=== PATIENT | female | born 1965 | race Caucasian/White ===

== ENCOUNTER 2020-05-02 11:45 | Outpatient (NON) | payer BC, SELFPAY ==
[2020-05-03 00:19] LABS: SARS-CoV-2 RNA PCR Positive
== END 2020-05-02 11:46 ==
PROVIDERS: Visit Provider Internal Medicine Infectious Disease
DX: U07.1 COVID-19 (principal)
CPT/HCPCS: 87635; C9803; U0003

== ENCOUNTER 2021-05-27 12:46 | Outpatient (CLI) | payer BC, SELFPAY ==
--- NOTE | 2021-05-30 13:58 | WPDHOLTEREM ---
Holter/Event Monitor Holter/Event Monitor Date of procedure: 05/30/21 Holter/Event Procedure: 24 Hr Holter Monitor Diagnosis: The taken Indications: Evaluation of palpitation Image/Tracing Quality: Favorable Finding: The basic rhythm is sinus with normal [place] QRS and QT interval. The heart rate varies from a minimum of 62 to a maximum of 128. The average heart rate was 86. There were no abrupt pauses or abnormalities of AV conduction. The longest RR interval seen was 1.2 seconds. Supraventricular ectopic activity was infrequent consisting of PACs occurring at a rate of just over 1 complex per hour. There were no supraventricular runs and there were no examples of atrial fibrillation. Ventricular ectopic activity was extremely rare 4 isolated PVCs were seen during the entire study The patient submitted a diary which indicated there were no symptoms Conclusion: Essentially unremarkable 24 hour Holter monitor
== END 2021-05-27 12:47 | disposition home or self-care (01) ==
LOC: ANHCARD 12:49
PROVIDERS: PCP Internal Medicine Infectious Disease; Visit Provider Internal Medicine Infectious Disease
DX: R00.2 Palpitations (principal)
CPT/HCPCS: 93225; 93226